=== PATIENT | male | born 1960 | race Caucasian/White ===

== ENCOUNTER 2023-06-28 17:06 | Inpatient (IN) | payer MEDICAID ==
[~2023-06-28] VITALS: Ht 175.3 cm; Wt 70.3 kg
[2023-06-28] MEDS ORDERED: FUROSEMIDE 40 MG/4 ML VIAL IVP ONE (17:30)
[2023-06-28] MEDS ORDERED: PIPERACILLIN/TAZO 4.5 GM in NS 100 ML IV ONE (17:30)
[2023-06-28] MEDS ORDERED: METHYLPREDNISOLONE SOD SUCC 40 MG/ML VIAL IVP ONE (17:30)
[2023-06-28] MEDS ORDERED: ASPIRIN 81 MG TAB.CHEW PO ONE (17:30)
[2023-06-28 17:48] VITALS: O2SAT 68
[2023-06-28] MEDS: IPRATROPIUM/ALBUTEROL SULFATE 3 ML AMPUL.NEB (DUONEB) INH PRN ×3 (17:48→20:48)
[2023-06-28] MEDS ORDERED: PIPERACILLIN/TAZOBACTAM 4.5 GM/VIAL (ZOSYN) IV ONE (17:50)
[2023-06-28] MEDS ORDERED: methylPREDNISolone SOD SUCC/PF 62.5 MG/ML VIAL ONE (17:55)
[2023-06-28 18:04] VITALS: O2SAT 99
[2023-06-28 18:24] VITALS: PULSE 68
[2023-06-28 18:25] LABS: BASOPHILS # (AUTO) 0.1 K/uL (0.0-0.2); BASOPHILS % (AUTO) 0.4 % (0.0-2.0); EOSINOPHILS # (AUTO) 0.1 K/uL (0.0-0.4); EOSINOPHILS % (AUTO) 1.1 % (0.0-4.0); HEMOGLOBIN 15.4 g/dL (14.0-18.0); LYMPHOCYTES # (AUTO) 1.1 K/uL (1.0-5.5); LYMPHOCYTES % (AUTO) 8.9 % (20.5-51.5); MEAN CORPUSCULAR HEMOGLOBIN 32 pg (27-31); MEAN CORPUSCULAR HGB CONC 33 % (32-36); MEAN CORPUSCULAR VOLUME 98 fL (79.0-98.0); MONOCYTES # (AUTO) 0.6 K/uL (0.0-1.0); MONOCYTES % (AUTO) 4.5 % (1.7-9.3); NEUTROPHILS # (AUTO) 10.6 K/uL (1.8-7.7); NEUTROPHILS % (AUTO) 85.1 % (40.0-70.0); RED BLOOD CELL COUNT(AUTO) 4.79 MIL/uL (4.2-6.2); RED CELL DISTRIBUTION WIDTH 13.5 % (9.0-15.0); WHITE BLOOD COUNT (AUTO) 12.4 K/uL (4.8-10.8)
[2023-06-28 18:33] LABS: PLATELET COUNT (AUTO) 157 K/uL (130-430)
[2023-06-28 18:43] LABS: ALANINE AMINOTRANSFERASE 162 U/L (12-78); ALBUMIN 3.3 g/dL (3.4-4.8); ANION GAP 15 (5-15); ASPARTATE AMINOTRANSFERASE 286 U/L (10-37); CALCIUM 8.6 mg/dL (8.4-11.0); CARBON DIOXIDE 23 mmol/L (23-29); CHLORIDE 100 mmol/L (98-107); CREATININE 2.17 mg/dL (0.55-1.30); GFR AFRICAN AMERICAN 40 mL/min (>90); GLUCOSE 188 mg/dL (74-106); POTASSIUM 4.1 mmol/L (3.5-5.1); SODIUM SERUM 138 mmol/L (136-145); TOTAL PROTEIN, SERUM 7.3 g/dL (6.4-8.3); UREA NITROGEN, BLOOD 42 mg/dL (8-21)
[2023-06-28 18:44] LABS: GFR NON AFRICAN-AMERICAN 33 mL/min (>90)
[2023-06-28 18:45] LABS: BILIRUBIN,DIRECT 0.4 mg/dL (0.0-0.3)
[2023-06-28 19:32] LABS: BLOOD GAS PH 7.466 (7.350-7.450)
[2023-06-28 19:33] LABS: ABG O2 SAT% ESTIMATE 98.8 % (94.0-100.0); BLOOD GAS BASE EXCESS -2.1 mmol/L (-3.0-3.0); BLOOD GAS HCO3 20.2 mmol/L (21.0-27.0); BLOOD GAS PCO2 28.6 mmHg (32.0-45.0); BLOOD GAS PO2 129.2 mmHg (75.0-100.0)
[2023-06-28] MEDS ORDERED: HYDROcodone/ACETAMIN 5-325 MG TAB (NORCO/ VICODIN) PO PRN (20:30)
[2023-06-28] MEDS ORDERED: HYDROcodone/ACETAMIN 10-325 MG TAB PO PRN (20:30)
[2023-06-28] MEDS ORDERED: ONDANSETRON HCL 4 MG/2 ML VIAL IVP PRN (20:30)
[2023-06-28] MEDS ORDERED: ACETAMINOPHEN 325 MG TABLET PO PRN (20:30)
[2023-06-28] MEDS: IPRATROPIUM/ALBUTEROL SULFATE 3 ML AMPUL.NEB (DUONEB) INH SCH (20:48)
[2023-06-28] MEDS ORDERED: AMIO200T66 PO ×2 (22:40→23:29)
[2023-06-28] MEDS ORDERED: SACU1TAB PO ×2 (22:41→23:29)
[2023-06-28] MEDS ORDERED: ASA81 PO (23:29)
[2023-06-28] MEDS ORDERED: PRO40 PO (23:29)
[2023-06-28] MEDS ORDERED: TOPXL100 PO (23:29)
[2023-06-28] MEDS ORDERED: CALC650T29 PO (23:29)
[2023-06-28] MEDS ORDERED: MEX150 PO (23:29)
[2023-06-28] MEDS ORDERED: POTA-197 PO (23:29)
[2023-06-28] MEDS ORDERED: ASCO125T PO (23:29)
[2023-06-28] MEDS ORDERED: OXYIR5 PO (23:29)
[2023-06-28] MEDS ORDERED: MULT-1117 PO (23:29)
[2023-06-28] MEDS ORDERED: FURO-149 PO (23:29)
[2023-06-28] MEDS ORDERED: NITSL SL (23:29)
[2023-06-28] MEDS ORDERED: LORA-258 PO (23:29)
[2023-06-28] MEDS ORDERED: SPIR25TA PO (23:29)
[2023-06-28] MEDS ORDERED: SENN8.6T19 PO (23:29)
[2023-06-29] VITALS (25 sets, daily range): BP systolic 85–136; PULSE 65–175; RESP 18–25; TEMP 97.4–98.7; O2SAT 88–100
[2023-06-29] MEDS ORDERED: MEXILETINE HCL 150 MG CAPSULE PO ONE (03:30)
[2023-06-29] MEDS: IPRATROPIUM/ALBUTEROL SULFATE 3 ML AMPUL.NEB (DUONEB) INH SCH ×6 (05:43→23:06)
[2023-06-29 06:14] LABS: BASOPHILS % (AUTO) 0.2 % (0.0-2.0); HEMATOCRIT 42.5 % (36-54); HEMOGLOBIN 14.2 g/dL (14.0-18.0); LYMPHOCYTES # (AUTO) 0.4 K/uL (1.0-5.5); LYMPHOCYTES % (AUTO) 3.9 % (20.5-51.5); MEAN CORPUSCULAR HEMOGLOBIN 32 pg (27-31); MEAN CORPUSCULAR HGB CONC 34 % (32-36); MEAN CORPUSCULAR VOLUME 97 fL (79.0-98.0); MONOCYTES # (AUTO) 0.1 K/uL (0.0-1.0); MONOCYTES % (AUTO) 1.5 % (1.7-9.3); NEUTROPHILS % (AUTO) 94.4 % (40.0-70.0); PLATELET COUNT (AUTO) 200 K/uL (130-430); RED BLOOD CELL COUNT(AUTO) 4.39 MIL/uL (4.2-6.2); RED CELL DISTRIBUTION WIDTH 13.6 % (9.0-15.0); WHITE BLOOD COUNT (AUTO) 9.5 K/uL (4.8-10.8)
[2023-06-29 06:50] LABS: ALBUMIN 2.6 g/dL (3.4-4.8); CALCIUM 8.8 mg/dL (8.4-11.0); CREATININE 1.97 mg/dL (0.55-1.30); PHOSPHORUS 3.6 mg/dL (2.7-4.5); POTASSIUM 3.4 mmol/L (3.5-5.1); TOTAL PROTEIN, SERUM 6.4 g/dL (6.4-8.3)
[2023-06-29] MEDS ORDERED: ACETAMINOPHEN 325 MG TABLET PO PRN (08:30)
[2023-06-29] MEDS ORDERED: ASPIRIN 81 MG TAB.CHEW PO SCH (09:00)
[2023-06-29] MEDS ORDERED: oxyCODONE HCL 5 MG TABLET PO PRN (09:30)
[2023-06-29] MEDS ORDERED: ASPIRIN 81 MG TAB.CHEW PO ONE (09:45)
[2023-06-29] MEDS ORDERED: SENNOSIDES 8.6 MG TABLET PO ONE (09:45)
[2023-06-29] MEDS ORDERED: POTASSIUM CHLORIDE 10 MEQ TABLET.ER PO ONE (09:45)
[2023-06-29] MEDS: ENOXAPARIN SODIUM 40 MG/0.4 ML SYRINGE SUBCUT SCH (09:58)
[2023-06-29] MEDS: METHYLPREDNISOLONE SOD SUCC 40 MG/ML VIAL IVP SCH ×3 (09:59→20:39)
[2023-06-29] MEDS ORDERED: SPIRONOLACTONE 25 MG TABLET (ALDACTONE) PO ONE (10:00)
[2023-06-29] MEDS ORDERED: AMIODARONE HCL 200 MG TABLET PO ONE (11:15)
[2023-06-29] MEDS ORDERED: METOPROLOL SUCCINATE 50 MG TAB.SR.24H (TOPROL XL) PO ONE (11:15)
[2023-06-29] MEDS: MEXILETINE HCL 200 MG PO SCH (12:00)
[2023-06-29] MEDS: cefTRIAXone 1 GM IVPB PREMIX 50 ML IV SCH (12:01)
[2023-06-29] MEDS: AZITHROMYCIN 500 MG in NS 250 ML IV SCH (13:45)
[2023-06-29 17:44] LABS: BLOOD GAS PCO2 25.3 mmHg (32.0-45.0); BLOOD GAS PH 7.389 (7.350-7.450); BLOOD GAS PO2 57.1 mmHg (75.0-100.0)
[2023-06-29 17:45] LABS: ABG O2 SAT% ESTIMATE 90.1 % (94.0-100.0); BLOOD GAS HCO3 14.9 mmol/L (21.0-27.0)
[2023-06-29 17:46] LABS: ALLEN'S TEST POSITIVE (P)
[2023-06-29 17:50] LABS: BILIRUBIN,URINE NEGATIVE (NEGATIVE); BLOOD, URINE NEGATIVE (NEGATIVE); CLARITY/URINE CLEAR (CLEAR); COLOR,URINE YELLOW (YELLOW); GLUCOSE,URINE NEGATIVE (NEGATIVE); KETONES,URINE NEGATIVE (NEGATIVE); LEUKOCYTE ESTERASE ,URINE NEGATIVE (NEGATIVE); NITRITE, URINE NEGATIVE (NEGATIVE); PROTEIN URINE NEGATIVE (NEGATIVE); UROBILINOGEN,URINE 0.2 (0.2-1.0)
[2023-06-29 18:12] LABS: BACTERIA,URINE FEW /HPF (None Seen); RBC,URINE NONE SEEN /HPF (0-3); WBC,URINE 0-3 /HPF (0-3)
[2023-06-29 18:13] LABS: FINE GRANULAR CASTS,URINE 0-10 /LPF (None Seen); HYALINE CASTS, URINE 0-10 /LPF (None Seen); MUCUS,URINE 3+ /LPF (None Seen)
[2023-06-29] MEDS ORDERED: DEXMEDETOMIDINE HCL 200 MCG/2 ML VIAL IV ONE (18:20)
[2023-06-29] MEDS ORDERED: FUROSEMIDE 40 MG/4 ML VIAL IVP ONE (18:30)
[2023-06-29] MEDS ORDERED: FUROSEMIDE 40 MG/4 ML VIAL ONE (18:43)
[2023-06-29] MEDS ORDERED: PROPOFOL DRIP 100 ML IV PRN (19:00)
[2023-06-29] MEDS ORDERED: NOREPINEPHRINE BITARTRATE 4 MG in NS 246 ML IV PRN (19:00)
[2023-06-29] MEDS: AMIODARONE HCL 200 MG TABLET PO SCH (20:39)
[2023-06-29] MEDS: POTASSIUM CHLORIDE 10 MEQ TABLET.ER PO SCH (20:39)
[2023-06-29] MEDS ORDERED: MEXILETINE HCL 150 MG CAPSULE PO SCH (21:00)
[2023-06-29] MEDS ORDERED: FUROSEMIDE 40 MG TABLET PO SCH (21:00)
[2023-06-29] MEDS ORDERED: SACUBITRIL/VALSARTAN 24 MG-26 MG 1 TABLET PO SCH (21:00)
[2023-06-29] MEDS ORDERED: METOPROLOL SUCCINATE 50 MG TAB.SR.24H (TOPROL XL) PO SCH (21:00)
[2023-06-29] MEDS ORDERED: PANTOPRAZOLE SODIUM 40 MG/VIAL (PROTONIX) ONE (23:57)
[2023-06-30] VITALS (32 sets, daily range): BP systolic 88–138; PULSE 65–86; RESP 15–24; TEMP 97.3–97.8; O2SAT 93–100
[2023-06-30] MEDS: PANTOPRAZOLE SODIUM 40 MG/VIAL (PROTONIX) IVP SCH ×2 (00:02→09:20)
[2023-06-30] MEDS: MEXILETINE HCL 200 MG PO SCH ×3 (00:44→11:27)
[2023-06-30] MEDS ORDERED: NOREPINEPHRINE 4 MG/4 ML VIAL IV ONE (00:46)
[2023-06-30] MEDS: IPRATROPIUM/ALBUTEROL SULFATE 3 ML AMPUL.NEB (DUONEB) INH SCH ×6 (03:14→23:00)
[2023-06-30] MEDS: METHYLPREDNISOLONE SOD SUCC 40 MG/ML VIAL IVP SCH ×4 (03:20→22:08)
[2023-06-30 05:41] LABS: URINE SODIUM, RANDOM 21 mmol/L (40-220)
[2023-06-30 06:36] LABS: ALBUMIN 2.7 g/dL (3.4-4.8); CALCIUM 9.2 mg/dL (8.4-11.0); CREATININE 2.7 mg/dL (0.55-1.30); POTASSIUM 4.1 mmol/L (3.5-5.1); TOTAL BILIRUBIN 0.9 mg/dL (0.0-1.0); TOTAL PROTEIN, SERUM 6.8 g/dL (6.4-8.3)
[2023-06-30] MEDS ORDERED: METOPROLOL SUCCINATE 50 MG TAB.SR.24H (TOPROL XL) PO ONE ×2 (06:54→07:00)
[2023-06-30] MEDS: AMIODARONE HCL 200 MG TABLET PO SCH ×2 (06:54→20:43)
[2023-06-30 07:14] LABS: HEMATOCRIT 47.9 % (36-54); HEMOGLOBIN 15.6 g/dL (14.0-18.0); MEAN CORPUSCULAR HEMOGLOBIN 32 pg (27-31); MEAN CORPUSCULAR HGB CONC 33 % (32-36); MEAN CORPUSCULAR VOLUME 98 fL (79.0-98.0); PLATELET COUNT (AUTO) 272 K/uL (130-430); RED BLOOD CELL COUNT(AUTO) 4.89 MIL/uL (4.2-6.2); WHITE BLOOD COUNT (AUTO) 20.6 K/uL (4.8-10.8)
[2023-06-30] MEDS ORDERED: FUROSEMIDE 40 MG/4 ML VIAL IVP ONE (07:45)
[2023-06-30 08:25] LABS: HEMOGLOBIN A1C 5.31 % (<5.7)
[2023-06-30 08:39] LABS: BASOPHILS % (MANUAL) 0 % (0-2); EOSINOPHILS % (MANUAL) 0 % (0-7); LYMPHOCYTES % (MANUAL) 3 % (20-46); MONOCYTES % (MANUAL) 2 % (0-11)
[2023-06-30 08:40] LABS: PLATELET ESTIMATE ADEQUATE (ADEQUATE)
[2023-06-30] MEDS ORDERED: PANTOPRAZOLE SODIUM 40 MG TAB PO PRN (09:00)
[2023-06-30] MEDS ORDERED: ALBUMIN HUMAN 25% 50 ML IV SCH (09:15)
[2023-06-30] MEDS: cefTRIAXone 1 GM IVPB PREMIX 50 ML IV SCH (09:19)
[2023-06-30] MEDS: ASPIRIN 81 MG TAB.CHEW PO SCH (09:20)
[2023-06-30] MEDS: SPIRONOLACTONE 25 MG TABLET (ALDACTONE) PO SCH (09:20)
[2023-06-30] MEDS: SENNOSIDES 8.6 MG TABLET PO SCH (09:20)
[2023-06-30] MEDS: ENOXAPARIN SODIUM 40 MG/0.4 ML SYRINGE SUBCUT SCH (09:21)
[2023-06-30] MEDS: POTASSIUM CHLORIDE 10 MEQ TABLET.ER PO SCH ×2 (09:21→20:43)
[2023-06-30] MEDS: METOPROLOL SUCCINATE 50 MG TAB.SR.24H (TOPROL XL) PO SCH ×2 (09:22→20:45)
[2023-06-30] MEDS: AZITHROMYCIN 500 MG in NS 250 ML IV SCH (10:26)
[2023-06-30] MEDS ORDERED: guaiFENesin/DEXTROMETHORPHAN 1 EACH TAB.ER.12H PO ONE (13:00)
[2023-06-30] MEDS: ALBUMIN HUMAN 25% 50 ML IV SCH ×4 (13:51→22:19)
[2023-06-30] MEDS: LORazepam 1 MG TABLET PO PRN (20:26)
[2023-06-30] MEDS: guaiFENesin/DEXTROMETHORPHAN 1 EACH TAB.ER.12H PO SCH (20:46)
[2023-07-01] VITALS (25 sets, daily range): BP systolic 92–119; PULSE 65–184; RESP 13–36; TEMP 97.6–98; O2SAT 91–100
[2023-07-01] MEDS: IPRATROPIUM/ALBUTEROL SULFATE 3 ML AMPUL.NEB (DUONEB) INH SCH ×6 (03:00→23:00)
[2023-07-01 04:24] LABS: BASOPHILS % (AUTO) 0.2 % (0.0-2.0); HEMATOCRIT 42.5 % (36-54); HEMOGLOBIN 13.7 g/dL (14.0-18.0); LYMPHOCYTES # (AUTO) 0.3 K/uL (1.0-5.5); LYMPHOCYTES % (AUTO) 1.8 % (20.5-51.5); MEAN CORPUSCULAR HEMOGLOBIN 32 pg (27-31); MEAN CORPUSCULAR HGB CONC 32 % (32-36); MEAN CORPUSCULAR VOLUME 99 fL (79.0-98.0); MONOCYTES # (AUTO) 0.4 K/uL (0.0-1.0); MONOCYTES % (AUTO) 2.2 % (1.7-9.3); NEUTROPHILS # (AUTO) 17.4 K/uL (1.8-7.7); NEUTROPHILS % (AUTO) 95.8 % (40.0-70.0); PLATELET COUNT (AUTO) 206 K/uL (130-430); RED CELL DISTRIBUTION WIDTH 14.6 % (9.0-15.0); WHITE BLOOD COUNT (AUTO) 18.2 K/uL (4.8-10.8)
[2023-07-01 04:52] LABS: ALBUMIN 2.9 g/dL (3.4-4.8); CALCIUM 9.1 mg/dL (8.4-11.0); CREATININE 2.41 mg/dL (0.55-1.30); POTASSIUM 4.4 mmol/L (3.5-5.1); THYROID STIMULATING HORMONE 1.21 uIu/mL (0.34-4.82); TOTAL BILIRUBIN 0.9 mg/dL (0.0-1.0); TOTAL PROTEIN, SERUM 6.3 g/dL (6.4-8.3)
[2023-07-01] MEDS: PANTOPRAZOLE SODIUM 40 MG TAB PO SCH ×2 (09:00→10:03)
[2023-07-01] MEDS ORDERED: FUROSEMIDE 20 MG/2 ML VIAL IVP ONE (09:00)
[2023-07-01] MEDS ORDERED: ALBUMIN HUMAN 25% 50 ML IV ONE (09:00)
[2023-07-01] MEDS ORDERED: FUROSEMIDE 40 MG/4 ML VIAL IVP SCH (09:00)
[2023-07-01] MEDS: SENNOSIDES 8.6 MG TABLET PO SCH (10:01)
[2023-07-01] MEDS: cefTRIAXone 1 GM IVPB PREMIX 50 ML IV SCH (10:01)
[2023-07-01] MEDS: METOPROLOL SUCCINATE 50 MG TAB.SR.24H (TOPROL XL) PO SCH ×2 (10:02→20:56)
[2023-07-01] MEDS: SPIRONOLACTONE 25 MG TABLET (ALDACTONE) PO SCH (10:03)
[2023-07-01] MEDS: ASPIRIN 81 MG TAB.CHEW PO SCH (10:03)
[2023-07-01] MEDS: AMIODARONE HCL 200 MG TABLET PO SCH ×2 (10:03→20:54)
[2023-07-01] MEDS: predniSONE 20 MG TABLET PO SCH ×2 (10:03→20:54)
[2023-07-01] MEDS: POTASSIUM CHLORIDE 10 MEQ TABLET.ER PO SCH ×2 (10:04→20:55)
[2023-07-01] MEDS: ENOXAPARIN SODIUM 40 MG/0.4 ML SYRINGE SUBCUT SCH (10:08)
[2023-07-01] MEDS ORDERED: BUMETANIDE 1 MG TABLET PO ONE (11:00)
[2023-07-01] MEDS: guaiFENesin/DEXTROMETHORPHAN 1 EACH TAB.ER.12H PO SCH ×2 (11:11→20:56)
[2023-07-01] MEDS: AZITHROMYCIN 500 MG in NS 250 ML IV SCH (11:15)
[2023-07-01] MEDS: MEXILETINE HCL 200 MG PO SCH ×3 (11:37→23:18)
[2023-07-01] MEDS: NITROGLYCERIN 0.4 MG TAB.SUBL SL PRN ×4 (16:23→21:26)
[2023-07-01] MEDS: LORazepam 1 MG TABLET PO PRN (16:27)
[2023-07-01] MEDS ORDERED: NALOXONE HCL 0.4 MG/ML AMP (NARCAN) IVP PRN (16:45)
[2023-07-01] MEDS: MORPHINE 2 MG/ML INJ. SYRINGE IVP PRN ×2 (16:49→20:57)
[2023-07-01] MEDS ORDERED: AMIODARONE HCL 200 MG TABLET PO ONE (17:15)
[2023-07-01] MEDS ORDERED: COMMUNICATION ORDER XX ONE (17:15)
[2023-07-02] VITALS (29 sets, daily range): BP systolic 76–125; PULSE 65–106; RESP 11–25; TEMP 97.6–98.2; O2SAT 90–99
[2023-07-02] MEDS: IPRATROPIUM/ALBUTEROL SULFATE 3 ML AMPUL.NEB (DUONEB) INH SCH ×6 (03:00→23:00)
[2023-07-02 05:44] LABS: BASOPHILS % (AUTO) 0.1 % (0.0-2.0); HEMATOCRIT 39.7 % (36-54); LYMPHOCYTES # (AUTO) 0.3 K/uL (1.0-5.5); LYMPHOCYTES % (AUTO) 2.2 % (20.5-51.5); MEAN CORPUSCULAR HEMOGLOBIN 32 pg (27-31); MEAN CORPUSCULAR HGB CONC 33 % (32-36); MEAN CORPUSCULAR VOLUME 98 fL (79.0-98.0); MONOCYTES # (AUTO) 0.7 K/uL (0.0-1.0); NEUTROPHILS # (AUTO) 12.7 K/uL (1.8-7.7); NEUTROPHILS % (AUTO) 92.7 % (40.0-70.0); PLATELET COUNT (AUTO) 179 K/uL (130-430); RED BLOOD CELL COUNT(AUTO) 4.05 MIL/uL (4.2-6.2); RED CELL DISTRIBUTION WIDTH 14.4 % (9.0-15.0); WHITE BLOOD COUNT (AUTO) 13.7 K/uL (4.8-10.8)
[2023-07-02 06:00] LABS: ALBUMIN 2.9 g/dL (3.4-4.8); CALCIUM 8.7 mg/dL (8.4-11.0); CREATININE 2.01 mg/dL (0.55-1.30); POTASSIUM 4.3 mmol/L (3.5-5.1); TOTAL BILIRUBIN 0.9 mg/dL (0.0-1.0); TOTAL PROTEIN, SERUM 6.1 g/dL (6.4-8.3)
[2023-07-02] MEDS ORDERED: FUROSEMIDE 20 MG/2 ML VIAL IVP ONE (06:00)
[2023-07-02] MEDS: MEXILETINE 200 MG PO SCH ×3 (06:51→21:56)
[2023-07-02] MEDS ORDERED: BUMEX 1 MG/4 ML VIAL IVP ONE (10:00)
[2023-07-02] MEDS: cefTRIAXone 1 GM IVPB PREMIX 50 ML IV SCH (10:03)
[2023-07-02] MEDS: ENOXAPARIN SODIUM 40 MG/0.4 ML SYRINGE SUBCUT SCH (10:04)
[2023-07-02] MEDS: guaiFENesin/DEXTROMETHORPHAN 1 EACH TAB.ER.12H PO SCH ×2 (10:04→21:55)
[2023-07-02] MEDS: SENNOSIDES 8.6 MG TABLET PO SCH (10:05)
[2023-07-02] MEDS: POTASSIUM CHLORIDE 10 MEQ TABLET.ER PO SCH ×2 (10:05→21:55)
[2023-07-02] MEDS: AMIODARONE HCL 200 MG TABLET PO SCH ×2 (10:07→21:54)
[2023-07-02] MEDS: predniSONE 20 MG TABLET PO SCH ×2 (10:07→21:55)
[2023-07-02] MEDS: ASPIRIN 81 MG TAB.CHEW PO SCH (10:07)
[2023-07-02] MEDS: PANTOPRAZOLE SODIUM 40 MG TAB PO SCH (10:07)
[2023-07-02] MEDS: METOPROLOL SUCCINATE 50 MG TAB.SR.24H (TOPROL XL) PO SCH ×2 (10:10→21:56)
[2023-07-02] MEDS: SPIRONOLACTONE 25 MG TABLET (ALDACTONE) PO SCH (10:10)
[2023-07-02] MEDS: FUROSEMIDE 40 MG/4 ML VIAL IVP SCH (10:12)
[2023-07-02] MEDS: AZITHROMYCIN 500 MG in NS 250 ML IV SCH (10:14)
[2023-07-02] MEDS: LORazepam 1 MG TABLET PO PRN (11:03)
[2023-07-03] VITALS (23 sets, daily range): BP systolic 88–121; PULSE 62–68; RESP 15–24; TEMP 97.3–98.1; O2SAT 93–100
[2023-07-03 05:13] LABS: HEMATOCRIT 40.2 % (36-54); LYMPHOCYTES # (AUTO) 0.2 K/uL (1.0-5.5); LYMPHOCYTES % (AUTO) 2.2 % (20.5-51.5); MEAN CORPUSCULAR HEMOGLOBIN 32 pg (27-31); MEAN CORPUSCULAR HGB CONC 33 % (32-36); MEAN CORPUSCULAR VOLUME 99 fL (79.0-98.0); MONOCYTES # (AUTO) 0.5 K/uL (0.0-1.0); MONOCYTES % (AUTO) 5.1 % (1.7-9.3); NEUTROPHILS # (AUTO) 9.4 K/uL (1.8-7.7); NEUTROPHILS % (AUTO) 92.7 % (40.0-70.0); PLATELET COUNT (AUTO) 151 K/uL (130-430); RED BLOOD CELL COUNT(AUTO) 4.06 MIL/uL (4.2-6.2); RED CELL DISTRIBUTION WIDTH 14.2 % (9.0-15.0); WHITE BLOOD COUNT (AUTO) 10.2 K/uL (4.8-10.8)
[2023-07-03 05:27] LABS: ALBUMIN 2.8 g/dL (3.4-4.8); CALCIUM 8.7 mg/dL (8.4-11.0); CREATININE 1.66 mg/dL (0.55-1.30); POTASSIUM 4.1 mmol/L (3.5-5.1); TOTAL BILIRUBIN 1.2 mg/dL (0.0-1.0); TOTAL PROTEIN, SERUM 5.9 g/dL (6.4-8.3)
[2023-07-03] MEDS: MEXILETINE 200 MG PO SCH ×3 (06:32→21:35)
[2023-07-03] MEDS: IPRATROPIUM/ALBUTEROL SULFATE 3 ML AMPUL.NEB (DUONEB) INH SCH ×5 (07:29→23:00)
[2023-07-03] MEDS: PANTOPRAZOLE SODIUM 40 MG TAB PO SCH (08:17)
[2023-07-03] MEDS: SPIRONOLACTONE 25 MG TABLET (ALDACTONE) PO SCH (08:17)
[2023-07-03] MEDS: ASPIRIN 81 MG TAB.CHEW PO SCH (08:17)
[2023-07-03] MEDS: predniSONE 20 MG TABLET PO SCH ×2 (08:17→21:30)
[2023-07-03] MEDS: SENNOSIDES 8.6 MG TABLET PO SCH (08:17)
[2023-07-03] MEDS: METOPROLOL SUCCINATE 50 MG TAB.SR.24H (TOPROL XL) PO SCH ×2 (08:17→21:31)
[2023-07-03] MEDS: POTASSIUM CHLORIDE 10 MEQ TABLET.ER PO SCH ×2 (08:18→21:35)
[2023-07-03] MEDS: cefTRIAXone 1 GM IVPB PREMIX 50 ML IV SCH (08:18)
[2023-07-03] MEDS: guaiFENesin/DEXTROMETHORPHAN 1 EACH TAB.ER.12H PO SCH ×2 (08:18→21:30)
[2023-07-03] MEDS: AMIODARONE HCL 200 MG TABLET PO SCH ×2 (08:18→21:30)
[2023-07-03] MEDS: FUROSEMIDE 40 MG/4 ML VIAL IVP SCH (08:18)
[2023-07-03] MEDS: ENOXAPARIN SODIUM 40 MG/0.4 ML SYRINGE SUBCUT SCH (08:19)
[2023-07-03] MEDS: AZITHROMYCIN 500 MG in NS 250 ML IV SCH (09:10)
[2023-07-03] MEDS: LORazepam 1 MG TABLET PO PRN (09:10)
[2023-07-03] MEDS ORDERED: BUMEX 1 MG/4 ML VIAL IVP ONE (12:00)
[2023-07-03] MEDS: CALCIUM CARBONATE 500 MG/ TAB.CHEW PO PRN (23:54)
[2023-07-03] MEDS: MORPHINE 2 MG/ML INJ. SYRINGE IVP PRN (23:58)
[2023-07-04] VITALS (12 sets, daily range): BP systolic 103–116; PULSE 65–74; RESP 18–20; TEMP 97.2–98.4; O2SAT 72–99
[2023-07-04] MEDS: IPRATROPIUM/ALBUTEROL SULFATE 3 ML AMPUL.NEB (DUONEB) INH SCH ×6 (03:00→23:00)
[2023-07-04 06:16] LABS: BASOPHILS % (AUTO) 0.1 % (0.0-2.0); HEMATOCRIT 42.3 % (36-54); HEMOGLOBIN 13.9 g/dL (14.0-18.0); LYMPHOCYTES # (AUTO) 0.2 K/uL (1.0-5.5); MEAN CORPUSCULAR HEMOGLOBIN 32 pg (27-31); MEAN CORPUSCULAR HGB CONC 33 % (32-36); MEAN CORPUSCULAR VOLUME 99 fL (79.0-98.0); MONOCYTES # (AUTO) 0.5 K/uL (0.0-1.0); MONOCYTES % (AUTO) 4.3 % (1.7-9.3); NEUTROPHILS # (AUTO) 10.1 K/uL (1.8-7.7); NEUTROPHILS % (AUTO) 93.6 % (40.0-70.0); PLATELET COUNT (AUTO) 160 K/uL (130-430); RED BLOOD CELL COUNT(AUTO) 4.29 MIL/uL (4.2-6.2); RED CELL DISTRIBUTION WIDTH 14.1 % (9.0-15.0); WHITE BLOOD COUNT (AUTO) 10.8 K/uL (4.8-10.8)
[2023-07-04] MEDS: MEXILETINE 200 MG PO SCH ×3 (06:27→21:22)
[2023-07-04 06:53] LABS: ALBUMIN 2.8 g/dL (3.4-4.8); CREATININE 1.86 mg/dL (0.55-1.30); POTASSIUM 4.5 mmol/L (3.5-5.1); TOTAL BILIRUBIN 1.4 mg/dL (0.0-1.0); TOTAL PROTEIN, SERUM 6.2 g/dL (6.4-8.3)
[2023-07-04] MEDS: cefTRIAXone 1 GM IVPB PREMIX 50 ML IV SCH (08:54)
[2023-07-04] MEDS: ENOXAPARIN SODIUM 40 MG/0.4 ML SYRINGE SUBCUT SCH (08:54)
[2023-07-04] MEDS: FUROSEMIDE 40 MG/4 ML VIAL IVP SCH (08:55)
[2023-07-04] MEDS: METOPROLOL SUCCINATE 50 MG TAB.SR.24H (TOPROL XL) PO SCH ×2 (08:55→21:22)
[2023-07-04] MEDS: PANTOPRAZOLE SODIUM 40 MG TAB PO SCH (08:56)
[2023-07-04] MEDS: AMIODARONE HCL 200 MG TABLET PO SCH ×2 (08:57→21:21)
[2023-07-04] MEDS: SENNOSIDES 8.6 MG TABLET PO SCH (08:57)
[2023-07-04] MEDS: predniSONE 20 MG TABLET PO SCH ×2 (08:58→21:21)
[2023-07-04] MEDS: SPIRONOLACTONE 25 MG TABLET (ALDACTONE) PO SCH (08:58)
[2023-07-04] MEDS: POTASSIUM CHLORIDE 10 MEQ TABLET.ER PO SCH ×2 (08:59→21:00)
[2023-07-04] MEDS: guaiFENesin/DEXTROMETHORPHAN 1 EACH TAB.ER.12H PO SCH ×2 (10:14→21:23)
[2023-07-04] MEDS: ASPIRIN 81 MG TAB.CHEW PO SCH (10:14)
[2023-07-04] MEDS ORDERED: AZIT-93 PO ×2 (11:05)
[2023-07-04] MEDS ORDERED: PRED20TA PO ×2 (11:05)
[2023-07-04] MEDS ORDERED: GUAI-723 PO ×2 (11:05)
[2023-07-04] MEDS: CALCIUM CARBONATE 500 MG/ TAB.CHEW PO PRN (21:21)
[2023-07-05 00:56] VITALS: BP_SYST 84; PULSE 65; RESP 18; TEMP 97.5; O2SAT 99
[2023-07-05] MEDS: IPRATROPIUM/ALBUTEROL SULFATE 3 ML AMPUL.NEB (DUONEB) INH SCH ×4 (03:28→15:00)
[2023-07-05 04:00] VITALS: BP_SYST 108; PULSE 67; RESP 18; TEMP 97.6; O2SAT 98
[2023-07-05 05:45] LABS: BASOPHILS % (AUTO) 0.1 % (0.0-2.0); HEMOGLOBIN 13.3 g/dL (14.0-18.0); LYMPHOCYTES # (AUTO) 0.4 K/uL (1.0-5.5); LYMPHOCYTES % (AUTO) 3.7 % (20.5-51.5); MEAN CORPUSCULAR HEMOGLOBIN 32 pg (27-31); MEAN CORPUSCULAR HGB CONC 32 % (32-36); MEAN CORPUSCULAR VOLUME 99 fL (79.0-98.0); MONOCYTES # (AUTO) 0.4 K/uL (0.0-1.0); MONOCYTES % (AUTO) 3.4 % (1.7-9.3); NEUTROPHILS # (AUTO) 10.7 K/uL (1.8-7.7); NEUTROPHILS % (AUTO) 92.8 % (40.0-70.0); PLATELET COUNT (AUTO) 155 K/uL (130-430); RED BLOOD CELL COUNT(AUTO) 4.16 MIL/uL (4.2-6.2); WHITE BLOOD COUNT (AUTO) 11.5 K/uL (4.8-10.8)
[2023-07-05] MEDS: MEXILETINE 200 MG PO SCH ×2 (05:45→14:01)
[2023-07-05 06:19] LABS: ALBUMIN 2.7 g/dL (3.4-4.8); CREATININE 1.68 mg/dL (0.55-1.30); POTASSIUM 4.4 mmol/L (3.5-5.1); TOTAL BILIRUBIN 1.3 mg/dL (0.0-1.0)
[2023-07-05 07:20] VITALS: O2SAT 96
[2023-07-05 08:00] VITALS: BP_SYST 113; PULSE 65; RESP 18; TEMP 97; O2SAT 99
[2023-07-05] MEDS: SENNOSIDES 8.6 MG TABLET PO SCH (09:57)
[2023-07-05] MEDS: POTASSIUM CHLORIDE 10 MEQ TABLET.ER PO SCH (09:57)
[2023-07-05] MEDS: ENOXAPARIN SODIUM 40 MG/0.4 ML SYRINGE SUBCUT SCH (09:58)
[2023-07-05] MEDS: PANTOPRAZOLE SODIUM 40 MG TAB PO SCH (09:58)
[2023-07-05] MEDS: ASPIRIN 81 MG TAB.CHEW PO SCH (09:58)
[2023-07-05] MEDS: SPIRONOLACTONE 25 MG TABLET (ALDACTONE) PO SCH (09:59)
[2023-07-05] MEDS: AMIODARONE HCL 200 MG TABLET PO SCH (09:59)
[2023-07-05] MEDS: METOPROLOL SUCCINATE 50 MG TAB.SR.24H (TOPROL XL) PO SCH (09:59)
[2023-07-05] MEDS: FUROSEMIDE 40 MG/4 ML VIAL IVP SCH (10:00)
[2023-07-05] MEDS: cefTRIAXone 1 GM IVPB PREMIX 50 ML IV SCH (10:59)
[2023-07-05] MEDS: guaiFENesin/DEXTROMETHORPHAN 1 EACH TAB.ER.12H PO SCH (11:00)
[2023-07-05 11:17] VITALS: BP_SYST 97; PULSE 69; RESP 21; TEMP 98; O2SAT 100
[2023-07-05 11:30] VITALS: O2SAT 97
[2023-07-05] MEDS ORDERED: FUROSEMIDE 40 MG TABLET PO SCH (21:00)
== END 2023-07-05 14:30 | disposition home or self-care (01) | DRG 194 ==
LOC: SED 17:06 → SIC 20:30 → STU 07-03 17:54
PROVIDERS: ADMIT Family Medicine; ATTEND Family Medicine
PROC: 5A09357 Assistance with Respiratory Ventilation, Less than 24 Consecutive Hours, Continuous Positive Airway Pressure (ICD-10-PCS; principal; 2023-06-28)
PROC: 5A09357 Assistance with Respiratory Ventilation, Less than 24 Consecutive Hours, Continuous Positive Airway Pressure (ICD-10-PCS; 2023-06-29)
PROC: 5A09357 Assistance with Respiratory Ventilation, Less than 24 Consecutive Hours, Continuous Positive Airway Pressure (ICD-10-PCS; 2023-06-30)
DX: I13.0 Hypertensive heart and chronic kidney disease with heart failure and stage 1 through stage 4 chronic kidney disease, or unspecified chronic kidney disease (principal); J96.21 Acute and chronic respiratory failure with hypoxia; E44.1 Mild protein-calorie malnutrition; I27.21 Secondary pulmonary arterial hypertension; N17.9 Acute kidney failure, unspecified; I50.23 Acute on chronic systolic (congestive) heart failure; I42.7 Cardiomyopathy due to drug and external agent; I47.20 Ventricular tachycardia, unspecified; J44.1 Chronic obstructive pulmonary disease with (acute) exacerbation; J44.0 Chronic obstructive pulmonary disease with (acute) lower respiratory infection; G89.4 Chronic pain syndrome; I25.5 Ischemic cardiomyopathy; F10.10 Alcohol abuse, uncomplicated; Y90.9 Presence of alcohol in blood, level not specified; I34.0 Nonrheumatic mitral (valve) insufficiency; N18.30 Chronic kidney disease, stage 3 unspecified; T43.625A Adverse effect of amphetamines, initial encounter; R74.01 Elevation of levels of liver transaminase levels; F41.9 Anxiety disorder, unspecified; M54.9 Dorsalgia, unspecified; E87.6 Hypokalemia; Z95.810 Presence of automatic (implantable) cardiac defibrillator; Z79.82 Long term (current) use of aspirin; Z79.899 Other long term (current) drug therapy; Z68.22 Body mass index [BMI] 22.0-22.9, adult; Y92.89 Other specified places as the place of occurrence of the external cause
CPT/HCPCS: 36415; 36600; 71045; 76770; 80048; 80053; 80076; 81000; 81001; 81015; 82570; 82803; 83037; 83735; 83880; 84100; 84302; 84443; 84484; 85007; 85025; 85027; 87040; 87081; 93005; 93306; 94640; 94660; 94760; 96365; 96375; 99291; C9113; G0378; J0456; J0696; J1030; J1650; J1940; J2270; J2405; J2543; J2930; J3490; J7050; J7512; P9046